=== PATIENT | female | born 1955 | race Caucasian/White ===

== ENCOUNTER → 2021-10-02 | Outpatient (CLI) | payer OTHER ==
[~2021-10-02] MED LIST: AMOX500 PO; BACPOLTO OD; ESCI10; ESCI20 PO; FLUC200 PO; FLUT.05NI; HYPROMELLOSE; LACO50TA2 PO; LEVE500 PO; METR500 PO; ONDA4 PO; OPTLUBOPO OP; OXYC5 PO; PHENY100ER PO; PSEU120ER PO; RANI150 PO; ROCEPHIN IV; SENN187 PO; SODIUM BICARB INH; TOBDEXOPO OP; TUMERIC; VITAMIN D22000 UNIT PO; [UNRECOGNIZED DRUG - OTHER]
[2021-10-02 11:04] LABS: Source, Urine Voided
[2021-10-02 12:26] LABS: Appearance, Urine Clear (Clear); Bilirubin, Urine Neg (Neg); Blood, Urine 2+ (Neg); Color, Urine Yellow (P-Yellow); Glucose Qualitative, Urine Neg (Neg); Ketones, Urine Neg (Neg); Leukocyte Esterase, Urine 2+ (Neg); Nitrite, Urine Pos (Neg); Protein, Urine Neg (Neg); Specific Gravity, Urine 1.005 (1.003-1.022); Urobilinogen, Urine NORM (Normal)
[2021-10-02 12:48] LABS: Bacteria Many /hpf; Squamous Epithelial Cells Few /hpf (Few)
== END | disposition home or self-care (01) ==
LOC: LAB SHORT 10:30
PROVIDERS: Nurse Practitioner Family
DX: N39.0 Urinary tract infection, site not specified (principal)
CPT/HCPCS: 81001; 87077; 87086; 87186

== ENCOUNTER → 2022-04-10 | Outpatient (CLI) | payer OTHER | END | disposition home or self-care (01) | LOC: LAB SHORT 13:35 → PLD 13:35 | DX: L72.9 Follicular cyst of the skin and subcutaneous tissue, unspecified (principal); L57.0 Actinic keratosis | CPT/HCPCS: 88304 ==

== ENCOUNTER → 2025-07-05 | Outpatient (CLI) | payer OTHER | END | disposition home or self-care (01) | LOC: LAB SHORT 18:09 → LAB 18:09 | DX: H60.502 Unspecified acute noninfective otitis externa, left ear (principal) | CPT/HCPCS: 87070; 87205; 87252 ==